=== PATIENT | male | born 1965 | race Caucasian/White ===

== ENCOUNTER 2022-07-10 08:40 | Emergency (ER) | payer MEDICAID ==
[~2022-07-10] VITALS: Ht 175.2 cm; Wt 72.6 kg
[2022-07-10] MEDS ORDERED: CYMBALTA60 MG PO (08:48)
[2022-07-10] MEDS ORDERED: CEPHALEXIN500 M1 PO (10:07)
== END 2022-07-10 10:26 | disposition home or self-care (01) ==
LOC: ED
DX: S61.214A Laceration without foreign body of right ring finger without damage to nail, initial encounter (principal); Z91.040 Latex allergy status; W45.8XXA Other foreign body or object entering through skin, initial encounter; Y93.89 Activity, other specified; Y92.89 Other specified places as the place of occurrence of the external cause; Y99.8 Other external cause status

== ENCOUNTER 2022-07-20 07:56 | Emergency (ER) | payer MEDICAID ==
[~2022-07-20] VITALS: Ht 175.2 cm; Wt 70.3 kg
[~2022-07-20 07:56] MED LIST: CEPHALEXIN500 M1 PO; CYMBALTA60 MG PO
== END 2022-07-20 08:30 | disposition home or self-care (01) ==
LOC: ED 07:56
DX: S61.214D Laceration without foreign body of right ring finger without damage to nail, subsequent encounter (principal); X58.XXXD Exposure to other specified factors, subsequent encounter

== ENCOUNTER 2022-10-19 07:44 | Emergency (ER) | payer MEDICAID ==
[~2022-10-19] VITALS: Ht 175.2 cm; Wt 72.6 kg
[2022-10-19] MEDS ORDERED: VIBRA-TAB100 MG PO (08:00)
== END 2022-10-19 08:11 | disposition home or self-care (01) ==
LOC: ED 07:44
DX: L03.011 Cellulitis of right finger (principal); Z91.040 Latex allergy status

== ENCOUNTER 2022-11-08 09:44 | Emergency (ER) | payer MEDICAID ==
[~2022-11-08] VITALS: Ht 172.7 cm; Wt 69.9 kg
[~2022-11-08 09:44] MED LIST changes: +VIBRA-TAB100 MG PO
[2022-11-08] MEDS ORDERED: MELOXICAM15 MG PO (11:56)
== END 2022-11-08 12:02 | disposition home or self-care (01) ==
LOC: ED 09:44
DX: M54.50 Low back pain, unspecified (principal); R03.0 Elevated blood-pressure reading, without diagnosis of hypertension; M19.90 Unspecified osteoarthritis, unspecified site; Z91.040 Latex allergy status

== ENCOUNTER → 2024-09-28 | Outpatient (CLI) | payer SELFPAY ==
[~2024-09-28] MED LIST changes: +MELOXICAM15 MG PO
[2024-09-28 13:31] LABS: BASO # 0.1 10*3/uL (0.0-0.1); BASO % 0.6 % (0.0-1.0); EOS # 0.2 10*3/uL (0.0-0.4); EOS % 1.7 % (1.0-4.0); MEAN CELL VOLUME 95.1 fl (80.0-94.0); MEAN CORPUSCULAR HGB 31.6 pg (27.0-31.0); MEAN PLATELET VOLUME 9.5 fl (9.6-12.3); MONO # 0.8 10*3/uL (0.1-1.0); MONO % 8.3 % (3.0-9.0); NEUT # 4.9 10*3/uL (2.3-7.9); NEUT % 54.8 % (47.0-73.0); NUCLEATED RED BLOOD CELL 0.0 % (0.0-0.0); NUCLEATED RED BLOOD CELL 0.0 10*3/uL (0.0-0.0); PLATELET COUNT AUTOMATED 201 10*3/uL (130-400); RED CELL DISTRI WIDTH 13.4 % (0-14.5)
[2024-09-28 14:33] LABS: BUN 10 mg/dl (9-23); LDL CHOLESTEROL 198 mg/dL (9-159); SGPT/ALT 12 U/L (5-49)
== END | disposition home or self-care (01) ==
LOC: LAB 13:10
PROVIDERS: ATTEND Family Medicine
DX: Z00.00 Encounter for general adult medical examination without abnormal findings (principal)

== ENCOUNTER 2024-10-02 15:26 | Emergency (ER) | payer SELFPAY ==
[~2024-10-02] VITALS: Ht 175.2 cm; Wt 73.5 kg
[2024-10-02] MEDS ORDERED: PREDNISONE20 M1 PO (17:37)
[2024-10-02] MEDS ORDERED: Acetaminophen/Oxycodone 5 MG/325 MG TABLET PO ONE (17:40)
== END 2024-10-02 17:50 | disposition home or self-care (01) ==
LOC: ED 15:26
DX: S46.911A Strain of unspecified muscle, fascia and tendon at shoulder and upper arm level, right arm, initial encounter (principal); M19.90 Unspecified osteoarthritis, unspecified site; X50.0XXA Overexertion from strenuous movement or load, initial encounter; Y93.89 Activity, other specified; Y92.89 Other specified places as the place of occurrence of the external cause; Y99.8 Other external cause status